=== PATIENT | male | born 1950 | race Two or more races ===

== ENCOUNTER 2016-05-23 23:11 | Emergency (ER) | payer OTHER ==
[~2016-05-23] VITALS: Ht 165.1 cm; Wt 72.6 kg
[2016-05-23] MEDS ORDERED: TdaP Vaccine 0.5ml Syr IM ONE (23:30)
[2016-05-23 23:48] VITALS: BP 148/78
[2016-05-24] MEDS ORDERED: KEFLEX500 MG ORAL (00:39)
--- NOTE | 2016-05-24 00:40 | Emergency Room Report ---
History of Present Illness General Chief Complaint: Laceration Source: Patient Present Illness HPI This is a 65-year-old male. He is right-hand dominant. He presents with laceration to the left hand. This is a Worker's Comp. issue. He was washing the dishes and there was a broken glass that lacerated his left hand. No other injury. Bleeding controlled. Allergies: Coded Allergies: No Known Allergies (Unverified , 05/23/16) Patient History Past Medical History: see triage record, old chart reviewed Past Surgical History: other Pertinent Family History: none Social History: Denies: drug use Immunizations: other Reviewed Nursing Documentation: PMH: Agreed, PSxH: Agreed Nursing Documentation-PMH Hx Diabetes: Yes Review of Systems Eye: Denies: blurred vision, eye pain ENT: Denies: ear pain, nose congestion, throat swelling Respiratory: Denies: cough, shortness of breath Cardiovascular: Denies: chest pain, palpitations Gastrointestinal: Denies: abdominal pain, diarrhea, nausea, vomiting Musculoskeletal: Denies: back pain, joint pain Skin: Denies: rash Neurological: Denies: headache, numbness Endocrine: Denies: increased thirst, increased urine Hematologic/Lymphatic: Denies: easy bruising All Other Systems: negative except mentioned in HPI Physical Exam Vital Signs Date Time Temp Pulse Resp B/P Pulse Ox O2 Delivery O2 Flow Rate FiO2 05/23/16 23:14 97.9 75 16 152/75 100 Room Air vitals with htn [id number] EP Interpretation: reviewed, normal General Appearance: well appearing, no apparent distress, alert Head: normocephalic, atraumatic Eyes: bilateral eye EOMI, bilateral eye PERRL ENT: hearing grossly normal, normal pharynx Neck: full range of motion, supple, no meningismus Respiratory: chest non-tender, lungs clear, normal breath sounds Cardiovascular #1: regular rate, rhythm, no murmur Gastrointestinal: normal bowel sounds, non tender, no mass, no organomegaly, no bruit, non-distended Musculoskeletal: back normal, gait/station normal, normal range of motion, other - Left hand: 4cm lac to distal 4th finger extending to palm. skin avulsion. FROM of MCP, PIP, and DIP joint. NVI. no tendon lac or FB. Psychiatric: mood/affect normal Skin: warm/dry Procedures Splinting Splinting : Consent: Verbal Pre-Made Type: metal Pre-Proc Neuro Vasc Exam: normal Post-Proc Neuro Vasc Exam: normal Patient Tolerated: Well Complications: None Laceration/Wound Repair Laceration/Wound Repair : Consent: Verbal Wound Location: upper extremity Wound's Depth, Shape: irregular, flap, stellate, other - avulsed tissue Wound Length (cm): 4 Wound Explored: clean Irrigated w/ Saline (ccs): 1000 Betadine Prep?: No Anesthesia: 1% Lidocaine Volume Anesthetic (ccs): 3 Wound Repaired With: sutures Suture Size/Type: 5:0, nylon Number of Sutures: 11 Splint Applied?: Yes Type of Splint Applied: finger Patient Tolerated: Well Complications: None Medical Decision Making Diagnostic Impression: Primary Impression: Laceration of finger of left hand Qualified Codes: S61.219A - Laceration without foreign body of unspecified finger without damage to nail, initial encounter ER Course Patient presents with a complex laceration to the distal fourth finger extending to the proximal palm. There was skin avulsion. No tendon laceration or foreign body. It came together without any problem. Patient tolerated procedure without a problem. We'll discharge home. We'll put on antibiotics. Last Vital Signs Date Time Temp Pulse Resp B/P Pulse Ox O2 Delivery O2 Flow Rate FiO2 05/23/16 23:48 97.9 80 18 148/78 100 Room Air Status: improved Disposition: HOME, SELF-CARE Condition: Stable Scripts Cephalexin* (KEFLEX*) 500 Mg Capsule 500 MG ORAL TID, #21 CAP 0 Refills Prov: ANGELA KELLY M.D. 05/24/16 Referrals: NOT CHOSEN [facility]/,REFERRING (PCP) Patient Instructions: Laceration Care, Adult Additional Instructions: Followup with your employer to see Worker's Comp. within 2 days for wound check. Sutures out in 10 days. Return if symptom worsen. ANGELA KELLY M.D. May 24, 2016 00:40
[2016-05-24] MEDS ORDERED: Bacitracin Oint UD TOPIC ONE (00:45)
[2016-05-24 00:51] VITALS: BP 140/76
== END 2016-05-24 00:52 | disposition home or self-care (01) ==
LOC: EMR 23:49
DX: S61.219A Laceration without foreign body of unspecified finger without damage to nail, initial encounter (principal); W25.XXXA Contact with sharp glass, initial encounter; Y93.G1 Activity, food preparation and clean up; Y99.0 Civilian activity done for income or pay; E11.9 Type 2 diabetes mellitus without complications
CPT/HCPCS: 29280; 90471; 90715